=== PATIENT | male | born 1955 | race Caucasian/White ===

== ENCOUNTER 2018-11-28 07:32 | Day surgery (SDC) | payer OTHER ==
[~2018-11-28 07:32] MED LIST: ACCUNEB0.63 MG/3; ACETAMINOPHEN; FENOFIBRATE134 MG; HYDROCODONE; HYOSCYAMINE0.125 M1 SL; INTESTINEX1 CA1 PO; LACTAID3000 UNIT; MAXALT10 MG; MEDROL2 MG; NEURONTIN300 MG; NORVASC5 MG; OXYC1TAB9 PO; PATADAY2.5 ML; PROTONIX40 MG; PULMICORT1 MG/2 ML; REGLAN5 MG/5 ML; SYNTHROID50 MCG; ZANTAC300 MG; [UNRECOGNIZED DRUG - OTHER]
== END 2018-11-28 13:15 | disposition home or self-care (01) ==
LOC: AMB-ENDOS 07:32
DX: K64.8 Other hemorrhoids (principal)

== ENCOUNTER 2020-06-10 05:50 | Day surgery (SDC) | payer OTHER | END 2020-06-10 12:00 | disposition home or self-care (01) | LOC: AMB-ENDOS 05:50 | PROVIDERS: ATTEND Surgery | DX: K62.89 Other specified diseases of anus and rectum (principal); Z20.822 Contact with and (suspected) exposure to COVID-19; K64.8 Other hemorrhoids ==